=== PATIENT | female | born 1985 | race Caucasian/White ===

== ENCOUNTER 2019-02-19 11:53 | Emergency (ER) | payer SELFPAY ==
[2019-02-19 12:05] VITALS: RESP 18; TEMP 98.2
[2019-02-19] MEDS ORDERED: ONDANSETRON 4 MG/2 ML VIAL IVP STA (12:05)
[2019-02-19] MEDS ORDERED: SODIUM CHLORIDE 0.9% 1,000 ML IV ONE (12:05)
[2019-02-19] MEDS ORDERED: MORPHINE SULFATE 2 MG/ML SYRINGE IVP STA (12:05)
--- NOTE | 2019-02-19 12:08 | ED ---
Abdominal Pain HPI - General Chief Complaint: Abdominal Pain Stated Complaint: Abd pain Time Seen by Provider: 02/19/19 11:56 Source: patient, EMS Mode of arrival: EMS Limitations: no limitations - History of Present Illness Initial Comments: 33-year-old female presenting today for chief complaint of abdominal pain. Patient states at 10:30 AM she had a very sudden onset of greater than 10 out of 10 left lower pelvic abdominal pain. Patient states she does not believe she is however is not impossible. Patient states she was concerned that ectopic or something wrong with her ovary. Patient states that she attempted to ride up the pain however the pain persisted. She states now that she has arrived to the emergency department after calling EMS the pain is now a 5 out of 10. She describes as a sharp pain without radiation. Patient denies any back pain dysuria or urgency. Frequency hematuria vaginal bleeding vaginal discharge. Patient denies any right lower quadrant tenderness she states that the pain was so severe at one point she was vomiting. Patient denies emesis melena hematochezia or diarrhea. Remaining review of system negative. Patient has history of section otherwise no other abdominal surgeries. Patient initially refused line, but after discussing risks was agreeable to IV access. - Related Data Home Medications Medication Instructions Recorded Confirmed No Known Home Medications 02/19/19 02/19/19 Allergies Allergy/AdvReac Type Severity Reaction Status Date / Time No Known Allergies Allergy Unverified 02/19/19 12:10 Review of Systems ROS Statement: Those systems with pertinent positive or pertinent negative responses have been documented in the HPI. ROS Other: All systems not noted in ROS Statement are negative. Past Medical History Past Medical History: No Reported History History of Any Multi-Drug Resistant Organisms: None Reported Past Surgical History: Section Past Psychological History: No Psychological Hx Reported Smoking Status: Current every day smoker Past Alcohol Use History: None Reported Past Drug Use History: None Reported General Exam - General Exam Comments Initial Comments: General: The patient is awake and alert, in no distress Eye: Pupils are equal, round and reactive to light, extra-ocular movements are intact. No nystagmus. There is normal conjunctiva bilaterally. No signs of icterus. Ears, nose, mouth and throat: There are moist mucous membranes and no oral lesions. Neck: The neck is supple, there is no tenderness or JVD. Cardiovascular: There is a regular rate and rhythm. No murmur, rub or gallop is appreciated. Respiratory: Lungs are clear to auscultation, respirations are non-labored, breath sounds are equal. No wheezes, stridor, rales, or rhonchi. Gastrointestinal: Soft, non-distended, tender abdomen to the left lower aspect of the abdomen there is no noted guarding or rigidity The abdomen is without masses or organomegaly noted. No CVA tenderness. Bowel sounds are unremarkable. Musculoskeletal: Normal ROM, no tenderness. Strength 5/5. Sensation intact. Pulses equal bilaterally 2+. Neurological: A&O x 3. CN II-XII intact, There are no obvious motor or sensory deficits. Coordination appears grossly intact. Speech is normal. Skin: Skin is warm and dry and no rashes or lesions are noted. Psychiatric: Cooperative, appropriate mood & affect, normal judgment. Limitations: no limitations Course Vital Signs 02/19/19 02/19/19 02/19/19 11:55 12:41 13:28 Temperature 98.2 F 98.2 F Pulse Rate 82 74 74 Respiratory 18 18 18 Rate Blood Pressure 117/77 103/62 103/62 O2 Sat by Pulse 95 98 98 Oximetry Medical Decision Making - Medical Decision Making 32yo female presenting for left lower abdominal pain began suddenly at 10:30. Patient is unsure if she is . Ultrasound revealed no IUP, ovarian cysts noted, i do not feel this is an ectopic as patient serum hcg (-). She has small free fluid in the pelvis. This may be consistent with rupture of ovarian cyst. Patient states her pain is near gone. Patient had no adnexal or cervical motion tenderness on pelvic examination. No vaginal discharge or odor. Patient denies concern for STD. Patient repeat abdominal exam benign. Patient appears well. She states she is ready to go home. Discussed return parameters, and importance of OBGYN f/u. Vero verbalized understanding and was discharged appearing well. - Lab Data Result diagrams: 02/19/19 12:10 02/19/19 12:10 Lab Results 02/19/19 02/19/19 02/19/19 Range/Units 12:10 12:10 12:10 WBC 6.5 (3.8-10.6) k/uL RBC 4.46 (3.80-5.40) m/uL Hgb 12.1 (11.4-16.0) gm/dL Hct 36.6 (34.0-46.0) % MCV 82.1 (80.0-100.0) fL MCH 27.1 (25.0-35.0) pg MCHC 33.0 (31.0-37.0) g/dL RDW 14.7 (11.5-15.5) % Plt Count 223 (150-450) k/uL Neutrophils % 71 % Lymphocytes % 19 % Monocytes % 6 % Eosinophils % 2 % Basophils % 0 % Neutrophils # 4.6 (1.3-7.7) k/uL Lymphocytes # 1.2 (1.0-4.8) k/uL Monocytes # 0.4 (0-1.0) k/uL Eosinophils # 0.1 (0-0.7) k/uL Basophils # 0.0 (0-0.2) k/uL Sodium 138 (137-145) mmol/L Potassium 3.9 (3.5-5.1) mmol/L Chloride 105 (98-107) mmol/L Carbon Dioxide 22 (22-30) mmol/L Anion Gap 11 mmol/L BUN 14 (7-17) mg/dL Creatinine 0.60 (0.52-1.04) mg/dL Est GFR (CKD-EPI)AfAm >90 (>60 ml/min/1.73 sqM) Est GFR (CKD-EPI)NonAf >90 (>60 ml/min/1.73 sqM) Glucose 85 (74-99) mg/dL Calcium 9.1 (8.4-10.2) mg/dL Total Bilirubin 0.4 (0.2-1.3) mg/dL AST 24 (14-36) U/L ALT 17 (9-52) U/L Alkaline Phosphatase 46 (38-126) U/L Total Protein 7.9 (6.3-8.2) g/dL Albumin 4.4 (3.5-5.0) g/dL Amylase 64 (30-110) U/L Lipase 71 (23-300) U/L HCG, Quant <2.4 mIU/mL Disposition Clinical Impression: Ovarian cyst, Ovarian cyst rupture Disposition: HOME SELF-CARE Condition: Good Instructions (If sedation given, give patient instructions): Ruptured Ovarian Cyst (ED) Additional Instructions: Please use medication as discussed. Please follow-up with family doctor in the next 2 days, and OBGYN next week. Please return to emergency room if the symptoms increase or worsen or for any other concerns. Is patient prescribed a controlled substance at d/c from ED?: No Referrals: None,Stated [Primary Care Provider] - 1-2 days Time of Disposition: 13:15
[2019-02-19 12:25] LABS: Basophils % (A) 0 %; Eosinophils # (A) 0.1 k/uL (0-0.7); Eosinophils % (A) 2 %; HCT 36.6 % (34.0-46.0); HGB 12.1 gm/dL (11.4-16.0); Lymphocytes # (A) 1.2 k/uL (1.0-4.8); Lymphocytes % (A) 19 %; MCH 27.1 pg (25.0-35.0); MCV 82.1 fL (80.0-100.0); Mean Platelet Volume 7.7; Monocytes # (A) 0.4 k/uL (0-1.0); Monocytes % (A) 6 %; Neutrophils # (A) 4.6 k/uL (1.3-7.7); Neutrophils % (A) 71 %; Platelet Count 223 k/uL (150-450); RBC 4.46 m/uL (3.80-5.40); RDW 14.7 % (11.5-15.5); WBC 6.5 k/uL (3.8-10.6)
[2019-02-19 12:36] LABS: ALT 17 U/L (9-52); AST 24 U/L (14-36); African American GFR (CKD) >90 (>60 ml/min/1.73 sqM); Albumin 4.4 g/dL (3.5-5.0); Alkaline Phosphatase 46 U/L (38-126); Amylase 64 U/L (30-110); Anion Gap 11 mmol/L; Blood Urea Nitrogen 14 mg/dL (7-17); Calcium 9.1 mg/dL (8.4-10.2); Carbon Dioxide 22 mmol/L (22-30); Chloride 105 mmol/L (98-107); Glucose 85 mg/dL (74-99); Non-African American GFR(CKD) >90 (>60 ml/min/1.73 sqM); Potassium 3.9 mmol/L (3.5-5.1); Sodium 138 mmol/L (137-145); Total Bilirubin 0.4 mg/dL (0.2-1.3); Total Protein 7.9 g/dL (6.3-8.2)
[2019-02-19 12:42] VITALS: BP 103/62; PULSE 74
--- NOTE | 2019-02-19 12:52 | US ---
EXAMINATION TYPE: US transvaginal DATE OF EXAM: 02/19/2019 COMPARISON: NONE CLINICAL HISTORY: severe left lower quadrant pain. LLQ Pain.Patient states doesn't think she is pregn ant not lab results are back yet. TECHNIQUE: Transvaginal (TV). Date of LMP: 01/28/2019 EXAM MEASUREMENTS: Uterus: 8.4 x 3.7 x 4.6 cm Endometrial Stripe: 0.6 cm Right Ovary: 4.7 x 2.9 x 2.8 cm Left Ovary: 3.2 x 2.0 x 2.6 cm 1. Uterus: Anteverted wnl 2. Endometrium: wnl 3. Right Ovary: Complex area 3.4 x 2.0 x 1.6cm 4. Left Ovary: Complex area with color flow 2.0 x 1.5 x 2.0cm. Spectral, color and waveform doppler imaging shows good arterial and venous flow within the ovaries ; there is no evidence for ovarian torsion. 5. Bilateral Adnexa: wnl 6. Posterior cul-de-sac: Fluid visualized. Bilateral complex areas seen on ovaries. Can not exclude ectopic beta hcg not available at this time. IMPRESSION: 1. Bilateral complex ovarian lesions are nonspecific. Hemorrhagic cyst or endometrioma the differenti al diagnosis. Correlate with beta hCG to exclude the possibility of ectopic . No intrauterin e seen. 2. Free fluid within the pelvis.
== END 2019-02-19 13:31 | disposition home or self-care (01) ==
LOC: EC 11:53
DX: N83.202 Unspecified ovarian cyst, left side (principal); N83.201 Unspecified ovarian cyst, right side; Z32.02 Encounter for pregnancy test, result negative; R11.10 Vomiting, unspecified; F17.200 Nicotine dependence, unspecified, uncomplicated; Z53.20 Procedure and treatment not carried out because of patient's decision for unspecified reasons
CPT/HCPCS: 36415; 76830; 80053; 82150; 83690; 84702; 85025; 93975; 96360; 99284